=== PATIENT | male | born 1985 | race Two or more races ===

== ENCOUNTER 2017-12-30 15:37 | Emergency (ER) | payer OTHER ==
[2017-12-30] MEDS ORDERED: CLINDAMYCIN PHOS 900MG/ D5W 50 50 ML IV ONE (16:00)
[2017-12-30] MEDS ORDERED: ACETAMINOPHEN 325 MG TAB PO ONE (17:45)
[2017-12-30] MEDS ORDERED: HYDROCODONE/APAP 5MG-325MG TAB PO ONE (17:45)
[2017-12-30 18:21] VITALS: BP 118/84
== END 2017-12-30 18:15 | disposition home or self-care (01) ==
LOC: FSED 15:37
DX: K04.7 Periapical abscess without sinus (principal)
CPT/HCPCS: 99283